=== PATIENT | female | born 1960 | race Caucasian/White ===

== ENCOUNTER 2020-12-03 18:05 | Inpatient (IN) | payer OTHER ==
[~2020-12-03] VITALS: Ht 170.2 cm; Wt 57.6 kg
[2020-12-03] MEDS ORDERED: METOPROLOL SUCC50 MG PO (21:45)
[2020-12-03] MEDS ORDERED: BASAGLAR K100 UNIT/1 SQ (21:45)
[2020-12-03] MEDS ORDERED: PROTONIX 40 MG40 M1 PO (21:47)
[2020-12-03] MEDS ORDERED: EUTHYROX75 MCG PO (21:49)
[2020-12-03 23:08] LABS: HEMOGLOBIN 13.9 gm/dl (12.3-15.3); RED BLOOD COUNT 4.51 M/UL (4.00-5.10); WHITE BLOOD COUNT 9.2 K/UL (4.5-11.0)
[2020-12-03 23:38] LABS: BUN/CREATININE RATIO 31 (0-10)
[2020-12-04 05:31] LABS: HEMOGLOBIN 12.5 gm/dl (12.3-15.3); RED BLOOD COUNT 4.14 M/UL (4.00-5.10)
[2020-12-04 05:37] LABS: WHITE BLOOD COUNT 6.7 K/UL (4.5-11.0)
[2020-12-04 05:50] LABS: BUN/CREATININE RATIO 33 (0-10)
[2020-12-04 14:29] LABS: BUN/CREATININE RATIO 30 (0-10)
[2020-12-04 20:54] LABS: BUN/CREATININE RATIO 26 (0-10)
== END 2020-12-05 11:40 | disposition home or self-care (01) | DRG 637 ==
LOC: 2 EAST 21:02
PROVIDERS: ADMIT Internal Medicine
DX: E10.10 Type 1 diabetes mellitus with ketoacidosis without coma (principal); U07.1 COVID-19; E87.1 Hypo-osmolality and hyponatremia; I10 Essential (primary) hypertension; E03.9 Hypothyroidism, unspecified; K58.9 Irritable bowel syndrome, unspecified; Z90.49 Acquired absence of other specified parts of digestive tract; Z79.890 Hormone replacement therapy; Z79.4 Long term (current) use of insulin; Z79.899 Other long term (current) drug therapy; Z23 Encounter for immunization
CPT/HCPCS: 36415; 36600; 71045; 80048; 80053; 81001; 82009; 82550; 82553; 82803; 82962; 84484; 85025; 86140; 90686; 96372; 96374; 96376; G0008; G0378; J1100; J1650; J3480; J7030